=== PATIENT | male | born 1970 | race Caucasian/White ===

== ENCOUNTER 2020-05-07 06:10 | Outpatient (REF) | payer OTHER, SELFPAY ==
[2020-05-07 11:30] LABS: MANUAL DIFF FLAG NO
[2020-05-07 11:39] LABS: Basophils Percent Auto 0.6 % (0-2); Eosinophils Absolute Auto 0.2 X10*3/uL (0.0-0.4); Eosinophils Percent Auto 2.9 % (0-4); Hematocrit 43.7 % (42-52); Hemoglobin 14.5 g/dl (14.0-18.0); Imm Gran Abs Auto 0.02 X10*3/uL (0.00-0.03); Imm Gran Pct Auto 0.4 % (0.0-0.4); Lymphocytes Absolute Auto 1.8 X10*3/uL (1.2-4.9); Lymphocytes Percent Auto 35.1 % (20-40); Mean Corpuscular HGB Conc 33.2 g/dl (31.0-36.0); Mean Corpuscular Hemoglobin 28.4 pg (27.0-33.0); Mean Corpuscular Volume 85.7 fL (80-98); Mean Platelet Volume 10.1 fL (9.4-12.4); Monocytes Absolute Auto 0.4 X10*3/uL (0.1-1.2); Monocytes Percent Auto 8.4 % (2-11); Neutrophils Absolute Auto 2.8 X10*3/uL (2.0-8.3); Neutrophils Percent Auto 52.6 % (45-73); Platelet Count 221 X10*3/uL (160-400); Red Cell Distribution Width 11.9 % (11.0-16.0); White Blood Count 5.2 X10*3/uL (4.8-10.8)
[2020-05-07 12:04] LABS: Alanine Aminotransferase 32 U/L (0-40); Albumin Level 4.3 g/dL (3.5-5.0); Alkaline Phosphatase 50 U/L (39-117); Anion Gap 14 (12-20); Aspartate Amino Transferase 24 U/L (5-37); Bilirubin Total 0.8 mg/dL (0.0-1.0); Blood Urea Nitrogen 22 mg/dL (9-16); Carbon Dioxide 28 mmol/L (22-29); Chloride 104 mmol/L (96-108); Cholesterol 205 mg/dL; Estimated Glomerular Filt Rate > 60; Glucose Fasting 84 mg/dL (60-99); HDL Cholesterol 40 mg/dL; LDL Cholesterol Calculated 119 mg/dl; Potassium 4.1 mmol/l (3.3-5.1); Sodium 142 mmol/L (135-145); Total Protein 6.9 g/dL (6.5-8.0); Triglycerides 230 mg/dL
[2020-05-07 12:13] LABS: Free T4 (Free Thyroxine) 1.15 ng/dL (0.71-1.85); Thyroid Stimulating Hormone 0.58 mIU/mL (0.32-4.0)
== END 2020-05-07 06:11 | disposition home or self-care (01) ==
LOC: HO.HMGCLDS 06:10
PROVIDERS: PCP Internal Medicine; Visit Provider Internal Medicine
DX: E78.00 Pure hypercholesterolemia, unspecified (principal); E03.9 Hypothyroidism, unspecified
CPT/HCPCS: 36415; 80053; 80061; 84439; 84443; 85025

== ENCOUNTER 2020-05-19 12:17 | Outpatient (REF) | payer OTHER, SELFPAY ==
--- NOTE | 2020-05-19 | US_ITS ---
EXAMINATION: US ABDOMEN COMPLETE CLINICAL INFORMATION: Abdominal pain. COMPARISON: Renal ultrasound dated 10/21/2012. TECHNIQUE: Real-time imaging of the abdominal viscera. FINDINGS: PANCREAS: Normal. ABDOMINAL AORTA: The proximal, mid, and distal segments are normal in caliber. INFERIOR VENA CAVA: Visualized portions are normal. LIVER: Normal. The liver is normal in size. The liver contour is normal. Parenchymal echogenicity is normal. No focal hepatic lesion. There is no intrahepatic biliary duct dilatation seen. GALLBLADDER: Normal. The gallbladder is physiologically distended without evidence of stones, sludge, polyps, wall thickening or pericholecystic fluid. COMMON BILE DUCT: Normal in caliber measuring 0.2 cm in diameter. RIGHT KIDNEY: Normal. No hydronephrosis. No renal calculi or focal parenchymal lesions. The kidney measures 12.5 cm in maximum dimension. LEFT KIDNEY: At the lower pole, a 1.5 cm maximal diameter simple cyst is seen.. No hydronephrosis. No renal calculi or focal parenchymal lesions. The kidney measures 12.0 cm in maximum dimension. SPLEEN: Normal. The spleen measures 11.1 cm in maximum dimension. FREE FLUID: None. US/US abdomen complete IMPRESSION: A small simple left renal lower pole cyst is seen. The examination is otherwise unremarkable.
== END 2020-05-19 12:18 | disposition home or self-care (01) ==
LOC: HO.US 12:17
PROVIDERS: PCP Internal Medicine; Visit Provider Internal Medicine
DX: R10.0 Acute abdomen (principal)
CPT/HCPCS: 76700

== ENCOUNTER 2020-07-17 07:22 | Outpatient (REF) | payer OTHER, SELFPAY | END 2020-07-17 07:23 | disposition home or self-care (01) | LOC: HO.LAB 07:22 | PROVIDERS: Visit Provider Internal Medicine | DX: Z20.828 Contact with and (suspected) exposure to other viral communicable diseases (principal) | CPT/HCPCS: C9803; U0003 ==

== ENCOUNTER 2020-07-30 11:20 | Day surgery (SDC) | payer OTHER, SELFPAY ==
[2020-07-26 11:30] VITALS: BMI 31.7
--- NOTE | 2020-07-29 08:56 | P.CONAN_ITS ---
Documented by User: Shanae Young 07/29/20 08:57 HPI - Anesthesia Eval Consult details Narrative: 50yo M for Colonoscopy [facility] Past Medical History Medical History COVID-19 vaccine administered Elevated cholesterol Lab test negative for COVID-19 virus Thyroid disease Surgical History Surgical History S/P scrotal varicocelectomy Social History Social History Alcohol intake: current Alcohol intake frequency: a few times a month Smoking Status: Never smoker Use of substances other than those prescribed or required for medical reasons: No Advance Directives Information Provided: No Recently lost weight without trying: No Meds Allergies Allergy/AdvReac Type Severity Reaction Status Date / Time No Known Allergies Allergy Verified 07/26/20 11:37 [No Known Allergies*] Home Medications Medication Instructions Recorded Confirmed Type levothyroxine 200 mcg PO DAILY 07/26/20 07/26/20 History multivitamin 1 tab PO DAILY 07/26/20 07/26/20 History rosuvastatin 10 mg PO DAILY 07/26/20 07/26/20 History Exam Exam Date and Time: July 29, 2020 0856 Height,Weight and Vital Signs: Height 5 ft 10 in Weight 100.244 kg Assessment and Plan Assessment Anesthesia Assessment: Chart Reviewed Documented by User: Fe Johnson 07/30/20 12:36 [facility] Past Medical History Medical History COVID-19 vaccine administered Elevated cholesterol Lab test negative for COVID-19 virus Thyroid disease Family History Family history of problems with anesthesia: No Surgical History Surgical History S/P scrotal varicocelectomy History of Problems with Anesthesia: No Social History Social History (Reviewed 07/30/20 @ 12:31 by Fe Peterson Alcohol intake: current Alcohol intake frequency: a few times a month Smoking Status: Never smoker Use of substances other than those prescribed or required for medical reasons: No Advance Directives Information Provided: No Recently lost weight without trying: No Meds Allergies Allergy/AdvReac Type Severity Reaction Status Date / Time No Known Allergies Allergy Verified 07/26/20 11:37 [No Known Allergies*] Home Medications Medication Instructions Recorded Confirmed Type levothyroxine 200 mcg PO DAILY 07/26/20 07/26/20 History multivitamin 1 tab PO DAILY 07/26/20 07/26/20 History rosuvastatin 10 mg PO DAILY 07/26/20 07/26/20 History Exam Height,Weight and Vital Signs: Vital Signs Temp Pulse Resp BP Pulse Ox 07/30/20 12:05 96.9 F 86 16 128/86 97 Airway Mallampati Class: II TM Dist: >3cm Neck ROM: Full Loose/Missing/Broken Teeth: No Heart: RRR Lungs: CTAB Assessment and Plan Assessment Anesthesia Assessment: Anesthesia Plan Discussed and Chart Reviewed Final Anesthetic Review NPO: Yes ASA Class: II Final Preanesthetic Review: No Changes in Pt Med Stat, Meds/Allgs Chart Reviewed, Consent Obtained/Reviewed and Anes Risks/Benef Reviewed Patient Risk: Low Procedure Risk: Low Assessment/Block/Sedation in SS: Assess/Block/Sedation-SS Anesthetic Plan Anesthetic Plan: MAC: Disposition: Standard PACU
[2020-07-30 12:05] VITALS: BP 128/86; PULSE 86; RESP 16; TEMP 36.1; O2SAT 97
[2020-07-30] MEDS: Lactated Ringers 1,000 ML 100 ML IVCONT (12:15)
--- NOTE | 2020-07-30 12:45 | MHC.SHP ---
Pre-Procedural Eval Section A The patient is an INPATIENT: No Changes since office visit: No Cold of Flu in the past 2 weeks, No New Medical Problems, No Changes in Medication and No Patient answered all questions The History & Physical has been completed within 30 days and I have reviewed it.: Yes Section B Chief Complaint: Left LQP Allergies: Allergies Allergy/AdvReac Type Severity Reaction Status Date / Time No Known Allergies Allergy Verified 07/26/20 11:37 [No Known Allergies*] Plan I have reviewed the history and physical and performed a pertinent physical examination on my patient. No changes have occurred unless specified.
[2020-07-30 13:10] VITALS: BP 93/62; PULSE 76; RESP 16; TEMP 36.4; O2SAT 96
--- NOTE | 2020-07-30 13:11 | PM.OP ---
Brief Operative Note Date of Service: 07/30/20 Pre-op diagnosis: llq pain Post-op diagnosis: same (normal) Surgeon: Pancho Cornell Anesthesia: MAC Estimated blood loss (mL): 0 Pathology: none sent Condition: stable Disposition: PACU
[2020-07-30 13:25] VITALS: BP 113/81; PULSE 78; RESP 18; TEMP 36.2; O2SAT 94
--- NOTE | 2020-07-30 13:41 | OP_ITS ---
SURGEON: Pancho Cornell MD INDICATIONS: Left lower quadrant and rectal pain. PREOPERATIVE DIAGNOSIS: POSTOPERATIVE DIAGNOSIS: PROCEDURE PERFORMED: Colonoscopy to the terminal ileum. ESTIMATED BLOOD LOSS: COMPLICATIONS: ANESTHESIA: ASSISTANTS: SPECIMENS: MEDICATIONS: Monitored anesthesia care. DESCRIPTION OF PROCEDURE: The history and physical performed. The risks and benefits of the procedure were explained to the patient. Informed consent was obtained. The patient was placed in left lateral decubitus position. A digital rectal exam was performed and was found to be normal. The Olympus pediatric video colonoscope was introduced into the rectum and advanced to the cecum without difficulty. The cecum was identified by transillumination, palpation, and identification of ileocecal valve. Examination was performed. The scope was removed. He tolerated the procedure well and was returned to recovery area in stable condition. FINDINGS: The terminal ileum was normal. Visualized colonic mucosa was normal. The quality of the prep was good. No polyps were identified. Retroflexed examination showed small internal hemorrhoids. IMPRESSION: Normal colonoscopy. RECOMMENDATION: Follow up as needed. Screening colonoscopy is recommended in 10 years for average risk individuals. MD CHRISTINE Carrillo/COLLIN / [id number] MTDD
--- NOTE | 2020-07-30 13:42 | HO.POSTANES ---
Post Anesthesia Evaluation Post Anesthesia Evaluation Vital Signs: Vital Signs Temp Pulse Resp BP Pulse Ox 07/30/20 13:25 97.2 F 78 18 113/81 94 07/30/20 13:10 97.5 F 76 16 93/62 96 07/30/20 12:05 96.9 F 86 16 128/86 97 Anesthesia: Monitored Mental Status: Awake Pain Control: Satisfactory Nausea/Vomiting: None Hydration: Adequate Anesthesia-Related Issues: No Anes. Related Issues
== END 2020-07-30 13:53 | disposition home or self-care (01) ==
PROVIDERS: PCP Internal Medicine; Visit Provider Internal Medicine Gastroenterology
PROC: 0DJD8ZZ Inspection of Lower Intestinal Tract, Via Natural or Artificial Opening Endoscopic (ICD-10-PCS; CPT 45378; principal; 2020-07-30 12:50)
DX: R10.32 Left lower quadrant pain (principal); K62.89 Other specified diseases of anus and rectum; K64.8 Other hemorrhoids; E03.9 Hypothyroidism, unspecified; E78.5 Hyperlipidemia, unspecified; Z86.79 Personal history of other diseases of the circulatory system; Q61.01 Congenital single renal cyst; Z79.899 Other long term (current) drug therapy
CPT/HCPCS: 45378; J3010

== ENCOUNTER 2022-01-18 06:02 | Outpatient (REF) | payer OTHER, SELFPAY ==
[2022-01-18 11:29] LABS: MANUAL DIFF FLAG NO
[2022-01-18 11:43] LABS: Basophils Percent Auto 0.5 % (0-2); Eosinophils Absolute Auto 0.2 X10*3/uL (0.0-0.4); Eosinophils Percent Auto 3.6 % (0-4); Hematocrit 44.8 % (42.0-52.0); Imm Gran Abs Auto 0.02 X10*3/uL (0.00-0.03); Imm Gran Pct Auto 0.4 % (0.0-0.4); Lymphocytes Percent Auto 36.3 % (20-40); Mean Corpuscular HGB Conc 33.5 g/dl (31.0-36.0); Mean Corpuscular Hemoglobin 28.8 pg (27.0-33.0); Mean Corpuscular Volume 86.2 fL (80.0-98.0); Mean Platelet Volume 10.1 fL (9.4-12.4); Monocytes Absolute Auto 0.4 X10*3/uL (0.1-1.2); Monocytes Percent Auto 7.9 % (2-11); Neutrophils Absolute Auto 2.9 x10*3/uL (2.0-8.3); Neutrophils Percent Auto 51.3 % (45-73); Platelet Count 214 X10*3/uL (160-400); Red Cell Distribution Width 12.1 % (11.0-16.0); White Blood Count 5.6 X10*3/uL (4.8-10.8)
[2022-01-18 12:26] LABS: Free T4 (Free Thyroxine) 1.11 ng/dL (0.71-1.85); Prostate Specific Antigen 0.49 ng/mL (<0.05-4.0); Thyroid Stimulating Hormone 0.89 uIU/mL (0.32-4.0)
[2022-01-18 12:46] LABS: Alanine Aminotransferase 37 U/L (0-40); Albumin Level 4.6 g/dL (3.5-5.0); Alkaline Phosphatase 53 U/L (39-117); Anion Gap 13 (12-20); Aspartate Amino Transferase 30 U/L (5-37); Bilirubin Total 0.7 mg/dL (0.0-1.0); Blood Urea Nitrogen 26 mg/dL (9-16); Calcium 9.1 mg/dL (8.4-10.2); Carbon Dioxide 27 mmol/L (22-29); Chloride 104 mmol/L (96-108); Cholesterol 213 mg/dL; Estimated Glomerular Filt Rate > 60; Glucose Fasting 89 mg/dL (60-99); HDL Cholesterol 47 mg/dL; LDL Cholesterol Calculated 118 mg/dl; Potassium 4.1 mmol/L (3.3-5.1); Sodium 140 mmol/L (135-145); Total Protein 7.2 g/dL (6.5-8.0); Triglycerides 244 mg/dL
== END 2022-01-18 06:03 | disposition home or self-care (01) ==
LOC: HO.HMGCLDS 06:02
PROVIDERS: Visit Provider Internal Medicine
DX: Z00.00 Encounter for general adult medical examination without abnormal findings (principal); E03.9 Hypothyroidism, unspecified; Z13.220 Encounter for screening for lipoid disorders; Z12.5 Encounter for screening for malignant neoplasm of prostate
CPT/HCPCS: 36415; 80053; 80061; 84153; 84439; 84443; 85025

== ENCOUNTER 2024-01-15 06:00 | Outpatient (REF) | payer OTHER, SELFPAY ==
[2024-01-15 11:04] LABS: MANUAL DIFF FLAG NO
[2024-01-15 11:17] LABS: Appearance Urine Clear; Basophils Absolute Auto 0.1 X10*3/uL (0.0-0.2); Basophils Percent Auto 0.9 % (0-2); Color Urine Yellow; Eosinophils Absolute Auto 0.3 X10*3/uL (0.0-0.4); Eosinophils Percent Auto 4.9 % (0-4); Glucose Urine UA Negative (Negative); Hematocrit 43.9 % (42.0-52.0); Hemoglobin 14.8 g/dl (14.0-18.0); Imm Gran Abs Auto 0.02 X10*3/uL (0.00-0.03); Imm Gran Pct Auto 0.4 % (0.0-0.4); Leukocyte Esterase Urine Negative (Negative); Lymphocytes Absolute Auto 2.1 X10*3/uL (1.2-4.9); Mean Corpuscular HGB Conc 33.7 g/dl (31.0-36.0); Mean Corpuscular Volume 85.9 fL (80.0-98.0); Monocytes Absolute Auto 0.5 X10*3/uL (0.1-1.2); Monocytes Percent Auto 7.9 % (2-11); Neutrophils Absolute Auto 2.8 x10*3/uL (2.0-8.3); Neutrophils Percent Auto 48.9 % (45-73); Nitrite Urine Negative (Negative); Platelet Count 221 X10*3/uL (160-400); Red Blood Count 5.11 X10*6/uL (4.60-5.80); Red Cell Distribution Width 12.8 % (11.0-16.0); Urine Blood Negative (Negative); Urine Ketones Negative (Negative); Urine Protein Negative (Neg-Trace); White Blood Count 5.7 X10*3/uL (4.8-10.8)
[2024-01-15 12:02] LABS: Alanine Aminotransferase 37 U/L (0-40); Albumin Level 4.5 g/dL (3.5-5.0); Alkaline Phosphatase 47 U/L (39-117); Anion Gap 13 (12-20); Aspartate Amino Transferase 29 U/L (5-37); Bilirubin Total 0.8 mg/dL (0.0-1.0); Blood Urea Nitrogen 18 mg/dL (9-16); Calcium 10.2 mg/dL (8.4-10.2); Carbon Dioxide 30 mmol/L (22-29); Chloride 102 mmol/L (96-108); Cholesterol 194 mg/dL (<200); Estimated Glomerular Filt Rate > 60; Free T4 (Free Thyroxine) 1.04 ng/dL (0.71-1.85); Glucose Fasting 92 mg/dL (60-99); HDL Cholesterol 51 mg/dL (>40); LDL Cholesterol Calculated 102 mg/dL (<100); Potassium 4.1 mmol/L (3.3-5.1); Sodium 141 mmol/L (135-145); Thyroid Stimulating Hormone 0.29 uIU/mL (0.32-4.0); Total Protein 7.4 g/dL (6.5-8.0); Triglycerides 205 mg/dL (<150)
[2024-01-15 12:03] LABS: Prostate Specific Antigen 0.37 ng/mL (<0.05-4.0)
== END 2024-01-15 06:01 | disposition home or self-care (01) ==
LOC: HO.HMGCLDS 06:00
PROVIDERS: PCP Internal Medicine; Visit Provider Internal Medicine
DX: E78.00 Pure hypercholesterolemia, unspecified (principal); Z12.5 Encounter for screening for malignant neoplasm of prostate; E03.9 Hypothyroidism, unspecified
CPT/HCPCS: 36415; 80053; 80061; 81003; 84153; 84439; 84443; 85025

== ENCOUNTER → 2024-02-27 09:49 | Outpatient (REF) | payer OTHER, SELFPAY ==
--- NOTE | 2024-02-27 09:53 | CA_ITS ---
Transthoracic Echocardiogram Patient (Last, First, Middle): Mukund Saenz T Gender: Male Date of : 1970 Age: 54 Procedure Date: 02/27/2024 Procedure Type: Transthoracic Echocardiogram Location: OP Height: 180.34 cm Weight: 97.52 kg BSA: 2.17 m2 Heart Rate: bpm BP: 124 / 76 mmHg [employer] Miner: PETEY Referring MD: Alon Stapleton MD Symptoms: I45.10 RBBB Z82.49 FAM HX HD Study Quality: Adequate ECG Rhythm: Sinus Conclusions: - The left ventricular systolic function is normal. The calculated ejection fraction is 58% by biplane method. - No obvious valvular pathology seen on this study. - There is mild dilatation of the sinuses of Valsalva measuring 4.37 cm and mild dilatation of the ascending aorta measuring 4.00 cm. Findings Left Ventricle Normal left ventricular cavity size. There is mildly increased left ventricular wall thickness. The left ventricular systolic function is normal. The calculated ejection fraction is 58% by biplane method. There is no evidence of regional wall motion abnormalities. Diastolic function is normal for age. Right Ventricle Mildly increased right ventricular cavity size. There is normal right ventricular systolic function. Atria Both atria are normal in size. Aortic Valve There is a normal trileaflet aortic valve. There is no aortic valve stenosis. There is no aortic valve regurgitation. Mitral Valve The mitral valve appears normal. There is trace mitral valve regurgitation. There is no mitral valve stenosis. Pulmonic Valve The pulmonic valve is likely normal. Tricuspid Valve Normal tricuspid valve structure. There is trace tricuspid valve regurgitation. There is no evidence of pulmonary hypertension. Great Vessels There is mild dilatation of the sinuses of Valsalva measuring 4.37 cm and mild dilatation of the ascending aorta measuring 4.00 cm. Venous The inferior vena cava is normal in size and collapses greater than 50% with inspiration. Pericardium/Pleural There is no evidence of pericardial effusion. Prior Study Comparison No prior study available for comparison. Recommendations, Care & Conclusions No obvious valvular pathology seen on this study. Measurements 2D Linear Measurements IVSd: 1.05 0.6-0.9/0.6-1.0 cm LVIDd: 5.19 3.9-5.3/4.2-5.9 cm LVIDd Index: 2.39 2.4-3.2/2.2-3.1 cm/m2 LVIDs: 3.32 2.0-3.6 cm LVPWd: 1.04 0.7-1.1 cm LA Diam: 2.90 2.7-3.8/3.0-4.0 cm LAIDs Index: 1.34 1.5-2.3 cm/m2 LV Mass: 255.87 67-162/88-224 g LV Mass Index: 117.91 43-95/49-115 g/m2 LVOT Diam: 2.30 3.0+(-)1.3 cm 2D Systolic Function EF 4C: 59.50 >55% EF 2C: 54.50 >55% EF BiP: 57.90 >55% Mitral Valve MV Pk E: 0.49 MV PK A: 0.58 MV Decel Time: 261.00 E/A: 0.80 E'Lateral: 9.36 E'Medial: 6.20 E/E' Med: 8.00 E/E' Lat: 5.30 PHT: 76.00 MVA PHT: 2.89 Decel [place]: 1.89 Aortic Valve AoV Pk Jaun: 1.09 AoV Mn Jaun: 0.74 AoV VTI: 0.19 AoV Pk Grad: 5.00 Aov Mn Grad: 3.00 DANIELLE Cont.VTI: 3.97 LVOT LVOT Pk Jaun: 0.90 LVOT Mn Jaun: 0.55 LVOT VTI: 0.18 LVOT Pk Grad: 3.00 LVOT Mn Grad: 1.00 LVOT Diam: 2.30 LVOT Area: 4.15 Diastolic Function MV Pk E: 0.49 MV Pk A: 0.58 E/A: 0.80 E'Medial: 6.20 E/E' Med: 8.00 E' Laterial: 9.36 E/E' Lat: 5.30 Right Ventricle TAPSE (mm): 10.70 TVS' Jaun: 14.00 Tricuspid Valve TR Pk Jaun: 1.72 TR Pk Grad: 12.00 RA Press: 3.00 RVSP: 15.00 Great Vessels Aorta Sinus of Valsalva: 4.37 2.0-3.[address] [place]: 3.66 1.7-3.4 cm Ao Asc: 4.00 2.1-3.4 cm Updated in Other Vendor System with Status of Final Winston Qureshi MD electronically signed on 02/29/2024 10:10:38 AM with status of Final
== END ==
LOC: HO.CARD 09:49
PROVIDERS: PCP Internal Medicine; Visit Provider Internal Medicine
DX: I45.10 Unspecified right bundle-branch block (principal); Z82.49 Family history of ischemic heart disease and other diseases of the circulatory system
CPT/HCPCS: 93306

== ENCOUNTER → 2024-02-27 09:53 | Outpatient (BNV) | payer OTHER, SELFPAY | PROVIDERS: PCP Internal Medicine; Visit Provider Internal Medicine | DX: I45.5 Other specified heart block (principal) | CPT/HCPCS: 93306 ==

== ENCOUNTER 2025-01-30 09:51 | Outpatient (REF) | payer OTHER, SELFPAY ==
[2025-01-30 10:51] LABS: MANUAL DIFF FLAG NO
[2025-01-30 11:13] LABS: Hematocrit 44.5 % (42.0-52.0); Hemoglobin 15.2 g/dl (14.0-18.0); Imm Gran Abs Auto 0.02 X10*3/uL (0.00-0.03); Imm Gran Pct Auto 0.4 % (0.0-0.4); Lymphocytes Absolute Auto 2.1 X10*3/uL (1.2-4.9); Mean Corpuscular HGB Conc 34.2 g/dl (31.0-36.0); Mean Corpuscular Hemoglobin 28.7 pg (27.0-33.0); Mean Corpuscular Volume 84.1 fL (80.0-98.0); NRBC Abs Auto 0.000 X10*3/uL (0.0-0.012); NRBC Pct Auto 0.0 /100WBC (0.0-0.2); Platelet Count 192 X10*3/uL (160-400); Red Blood Count 5.29 X10*6/uL (4.60-5.80); White Blood Count 5.3 X10*3/uL (4.8-10.8)
[2025-01-30 11:15] LABS: Hemoglobin A1C 135.7183 umol/L; Total Hemoglobin (HGBA1C) 3873.6138 umol/L
[2025-01-30 12:29] LABS: Alanine Aminotransferase 46 U/L (0-40); Albumin Level 5.0 g/dL (3.5-5.0); Alkaline Phosphatase 56 U/L (39-117); Anion Gap 11 (12-20); Aspartate Amino Transferase 32 U/L (5-37); Blood Urea Nitrogen 22 mg/dL (9-16); Calcium 9.6 mg/dL (8.4-10.2); Carbon Dioxide 30 mmol/L (22-29); Chloride 105 mmol/L (96-108); Estimated Glomerular Filt Rate > 60; Potassium 4.2 mmol/L (3.3-5.1); Sodium 142 mmol/L (135-145); Total Protein 7.5 g/dL (6.5-8.0)
[2025-01-30 12:37] LABS: Folate 13.1 ng/mL (> or = 4.0); Prostate Specific Antigen 0.28 ng/mL (<0.05-4.0); Vitamin B12 562 pg/mL (200-900)
[2025-01-30 13:16] LABS: Free T4 (Free Thyroxine) 1.10 ng/dL (0.71-1.85)
[2025-02-03 02:03] LABS: Lyme Abs Screen <0.90 index
== END 2025-01-30 09:52 | disposition home or self-care (01) ==
LOC: HO.LAB 09:51
PROVIDERS: PCP Internal Medicine; Visit Provider Internal Medicine
DX: Z00.00 Encounter for general adult medical examination without abnormal findings (principal); E78.00 Pure hypercholesterolemia, unspecified; E03.9 Hypothyroidism, unspecified; R53.83 Other fatigue; Z79.899 Other long term (current) drug therapy; Z12.5 Encounter for screening for malignant neoplasm of prostate; Z13.228 Encounter for screening for other metabolic disorders; Z13.30 Encounter for screening examination for mental health and behavioral disorders, unspecified; Z13.39 Encounter for screening examination for other mental health and behavioral disorders
CPT/HCPCS: 36415; 80053; 82607; 82746; 83036; 83721; 84153; 84439; 84443; 85025; 86617; 86618; 96127

== ENCOUNTER 2025-01-30 09:51 | Outpatient (AMB) | payer OTHER, SELFPAY ==
--- NOTE | 2025-01-30 09:57 | MHC.PC.OV ---
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 Last TSH suppressed-unclear if dose changed HLD-on crestor. Last LDL at goal Toe nail fungus. Last round of pulse diflucan was not effective Colonoscopy 07/30/20 ROS CONSTITUTIONAL: Denies weight loss, fever and chills. HEENT: Denies changes in vision and hearing. RESPIRATORY: Denies SOB and cough. CV: Denies palpitations and CP GI: Denies abdominal pain, nausea, vomiting and diarrhea. : Denies dysuria and urinary frequency. MSK: Denies new myalgia and joint pain. SKIN: Denies rash and pruritus. NEUROLOGICAL: Denies headache PSYCHIATRIC: Denies recent changes in mood. PHYSICAL EXAM: GENERAL: Alert and oriented x 3. NAD EYES: EOMI. Anicteric. HENT: Moist mucous membranes. No scleral icterus. No cervical lymphadenopathy. LUNGS: Clear to auscultation bilaterally. CARDIOVASCULAR: Regular rate and rhythm. No murmur. No JVD. ABDOMEN: Soft, non-tender +bs EXTREMITIES: No edema. Non-tender. SKIN: No rashes or lesions. Warm. NEUROLOGIC: No focal neurological deficits. CN II-XII grossly intact PSYCHIATRIC: Cooperative. Appropriate mood and affect [facility] Medical History COVID-19 vaccine administered Lab test negative for COVID-19 virus Thyroid disease Elevated cholesterol Surgical History History of colonoscopy (~07/30/20) S/P scrotal varicocelectomy Family History Mother No problems noted. Father No problems noted. Social History Housing: House Alcohol intake: current Alcohol intake frequency: a few times a month Patient Tobacco Use Status: Never used Tobacco e-Cigarette/Vaping Use: Never Used service: No Current occupational status: employed Cognitive needs: No Hearing needs: No Vision needs: Yes (reading glasses) Questionnaire PHQ-9 Over the last 2 weeks, how often have you been bothered by any of the following problems? 1. Little interest or pleasure in doing things: not at all 2. Feeling down, depressed, or hopeless: not at all 3. Trouble falling or staying asleep, or sleeping too much: not at all 4. Feeling tired or having little energy: not at all 5. Poor appetite or overeating: not at all 6. Feeling bad about yourself - or that you are a failure or have let yourself or your family down: not at all 7. Trouble concentrating on things, such as reading the newspaper or watching television: not at all 8. Moving or speaking so slowly that other people could have noticed. Or the opposite - being so fidgety or restless that you have been moving around a lot more than usual: not at all 9. Thoughts that you would be better off or of hurting yourself in some way: not at all Total score: 0 Source: Developed by Drs. Catrachito Carrizales, Cindi Hernadez, Naresh Conteh and colleagues, with an educational mala from [employer]. Thrive Questionnaire Date Thrive assessed: 01/30/25 I am a: Patient Within the past 12 months, did the food you bought not last and you didn't have the money to get more?: Never true Within the past 12 months, did you worry whether your food would run out before you got money to buy more?: Never true Do you have trouble paying for medicines?: No Do you have trouble getting transportation to medical appointments?: No Do you have trouble paying your heating and electricity bill?: No Do you have trouble taking care of your child, family member or friend?: No Do you have trouble with day-to-day activities such as bathing, preparing meals, shopping, managing finances, etc.?: No Are you currently unemployed and looking for a job?: No Are you interested in more education?: No THRIVE Score: 0 AUDIT C Alcohol Use Questionnaire (AUDIT-C) 1. How often do you have a drink containing alcohol?: Monthly or less 2. How many drinks containing alcohol do you have on a typical day when you are drinking?: 1 or 2 3. How often do you have six or more drinks on one occasion?: Less than monthly Total Score: 2 RANDY-7 AMB Questionnaire RANDY-7 Date RANDY - 7 assessed: 01/30/25 Feeling nervous, anxious, or on edge: 0 = Not at all Not being able to stop or control worryin = Not at all Worrying too much about different things: 0 = Not at all Trouble relaxin = Not at all Being so restless that it is hard to sit still: 0 = Not at all Becoming easily annoyed or irritable: 0 = Not at all Feeling afraid as if something awful might happen: 0 = Not at all Total RANDY-7 score (0-4 normal; 5-9 mild; 10-14 moderate; 15-21 severe): 0 Source: Developed by Drs. Catrachito Carrizales, Cindi Hernadez, Naresh Conteh and colleagues, with an educational mala from [employer]. Physical exam (Primary Care) Vital Signs: Last Vital Signs Temp 97.1 F 01/30/25 10:04 Pulse 79 01/30/25 10:04 BP 122/80 01/30/25 10:04 Pulse Ox 98 01/30/25 10:04 Oxygen Delivery Method Room Air 01/30/25 10:04 BMI result Body Mass Index 30.0 Tobacco/Smoking Status: Tobacco use Status Tobacco use date assessed 01/30/25 01/30/25 09:58 Patient Tobacco Use Status Never used Tobacco 01/30/25 09:58 e-Cigarette/Vaping Use Never Used 01/30/25 09:58 PHQ-9: PHQ-9 Score PHQ-9: Total score 0 01/30/25 09:58 Thrive Assessment: Date of Thrive Assessment Date Thrive assessed 01/30/25 01/30/25 09:58 Coding Level of Care Code New Pt Prev Care 40-64y(94864) Diagnoses Physical exam Z00.00 Elevated cholesterol E78.00 Thyroid disease E07.9 Assessment & Plan Assessment & Plan (1) Physical exam: Code(s): Z00.00 - Encounter for general adult medical examination without abnormal findings (2) Elevated cholesterol: Code(s): E78.00 - Pure hypercholesterolemia, unspecified Category: Medical (3) Thyroid disease: Comment: hypothyroid Code(s): E07.9 - Disorder of thyroid, unspecified Category: Medical Plan 55 year old for physical exam Past medical, surgical, social reviewed Hypothyroid-check labs Afternoon fatigue-narrow oropharnx. could consider future sleep study toe nail fungus-ternanifine ordered Preventive measures for age discussed Orders: Orders LDL Cholesterol Direct Today E78.00 - Pure hypercholesterolemia, unspecified Vitamin B12 and Folate Today R53.83 - Other fatigue Prostate Specific Antigen Today Z12.5 - Encounter for screening for malignant neoplasm of prostate Lyme IgG/IgM w/reflex to WB Today R53.83 - Other fatigue Medications: New terbinafine HCl 250 mg PO DAILY 84 tabs 0RF 12 weeks Refilled levothyroxine 200 mcg PO DAILY 90 tabs 3RF rosuvastatin 20 mg PO DAILY 90 tabs 3RF
--- OUTSIDE RECORDS SUMMARY | 2025-01-30 10:03 | XMS_ITS | Clinical Summary ---
Author Organization [facility] Address [address] [place] [address] Phone Care Team Providers Care Guest Service Aide Name Role Phone Alon Stapleton MD Primary Care Provider Allergies No known active allergies Active Problems Problem Noted Date Diagnosed Date Infertility management 09/11/2014 Overview (06/22/2015): Infertility History of varicocele 09/11/2014 Overview (06/22/2015): H/O Varicocele Hypothyroidism 09/11/2014 Overview (06/22/2015): Hypothyroidism Hyperlipidemia 09/11/2014 Overview (06/22/2015): Hyperlipidemia Social History Tobacco Use Types Packs/Day Years Used Date Smoking Tobacco: Never Education Answer Date Recorded Are you interested in more education? Not on bess e 11/10/2022 Are you concerned about learning? Not on file 11/10/2022 No 11/10/2022 No 11/10/2022 Digital Access Answer Date Recorded No 12/11/2022 No 12/11/2022 Reliable internet access at home? Not on file 12/11/2022 Device with a working camera? Not on file Sex and Gender Information Value Date Recorded Sex Assigned at Not on file Legal Sex Male 3:58 PM EST Gender Identity Not on file Sexual Orientation Not on file Last Filed Vital Signs Vital Sign Reading Time Taken Comments Blood Pressure 170/80 09/14/2014 1:07 PM EST Pulse - - Temperature - - Respiratory Rate - - Oxygen Saturation - - Inhaled Oxygen Concentration - - Weight 95.3 kg (210 lb) 09/14/2014 1:07 PM EST Height 177.8 cm (5' 10 ) 09/14/2014 1:07 PM EST Body Mass Index 30.13 09/14/2014 1:07 PM EST Plan of Treatment Health Maintenance Due Date Last Done Comments Adult Td,Tdap Booster 1970 LIPID PANEL 1970 DEPRESSION SCREENING 1984 SMOKING STATUS SCREENING (On ce After 26 Yrs) 01/23/1998 COLOGUARD 01/23/2017 COLONOSCOPY 01/23/2017 COLORECTAL CANCER SCREENING 01/23/2017 FIT TEST 01/23/2017 FOBT 01/23/2017 SIGMOIDOSCOPY 01/23/2017 VIRTUAL COLONOSCOPY 01/23/2017 PNEUMOCOCCAL VACCINES (50+ y ears) (1 of 1 - PCV) 01/23/2022 ZOSTER VACCINES (1 of 2) 01/23/2022 COVID-19 VACCINE (1 - 2023-2 5 season) 2024 HEPATITIS C SCREENING Completed 03/23/2015 HIV ONE-TIME SCREENING (18-6 5 YEARS) Completed 03/23/2015 HEPATITIS A VACCINES Aged Out No long er eligible based on patient's age to complete this topic HIB VACCINES Aged Out No longer eligi ble based on patient's age to complete this topic MENINGOCOCCAL VACCINES (ACWY) Aged Out No longer eligible based on patient's age to complete this topic MENINGOCOCCAL VACCINES (B) Aged Out N o longer eligible based on patient's age to complete this topic Medical Devices Not on file Procedures Procedure Name Priority Date/Time Associated Diagnosis Comments HEPATITIS C ANTIBODY, QUALITATIVE Routine 03/23/2015 1:30 PM EDT from Last 3 Months or Most Recently Relevant to Health Maintenance Results * HCV antibody, qualitative (03/23/2015 1:30 PM EDT) HCV Antibody Negative [facility] Comment: Antibodies to HCV not detected. Does not exclude the possibility of exposure to HCV. 03/23/2015 1:30 PM EDT 03/23/2015 3:31 PM EDT Comment:BLOOD Bony Parikh MD LAB BLOOD ORDERABLES Final Result [address] [id number] from Last 3 Months or Most Recently Relevant to Health Maintenance [place] [place] [id number] CHOICE [facility] CHOICE [facility] [place] [address] [place] [address] [place] [address] [place] [address] [place] [place] [address] [place] [place] [address] [place] [address] [place] [address] CHOICE Care Teams Guest Service Aide Relationship Specialty Start Date End Date Alon Stapleton MD [address] [place] [address] [place] [address] PCP - General Internal Medicine 07/06/14 Additional Source Comments The information contained in this document represents components of the legal health record. It is not the complete legal health record.[facility]
--- OUTSIDE RECORDS SUMMARY | 2025-01-30 10:03 | XMS_ITS | Patient Health Record ---
Author Organization [facility] Address [address] [place] [address] Care Team Providers Care Interventional Radiology Rn Name Role Phone Daya (RETIRED) Alon LOPEZ Primary Care Provide r Pancho Davalos Jr Unavailable [phone] Reason For Referral No Information Medications Medication SIG (Take, Route, Frequency, Duration) Notes Start Date End Date Status Rosuvastatin Calcium Active Levothyroxine Sodium Active MiraLax (colon prep) 8.3 ounce ((238) grams mixed with Gatorade or Crystal Light orally begin at 5:00 p.m. the day before the procedure for 1 day 07/21/2020 Active Ibuprofen PRN Active Advil PRN Active Multivitamin Active Immunizations Vaccine Route Administration Date Status Comme nts Influenza Unknown 04/28/2020 Administered Social History Tobacco Use: Social History Observation Description Date Details (start date - stop date) Never Smoker NA - NA Tobacco Use/Smoking Question Answer Notes Patient is a nonsmoker Alcohol Screen Question Answer Notes Did you have a drink contain ing alcohol in the past year? Yes How often did you have a dri nk containing alcohol in the past year? 2 to 3 times a week (3 points) How often did you have 6 or more drinks on one occasion in the past year? Never (0 point) Points 3 Interpretation Negative Problems Problem Type SNOMED Code ICD Code Onset Dates Problem Status W/U Status Risk Notes Problem 10288801 Rectal pain (K62.89) Active confirmed Problem 606283670 LLQ pain (R10.32) Active confirmed Plan Of Treatment Future Test Test Name Order Date COLONOSCOPY 07/21/2020 Insurance Providers Payer Name Payer Address Payer Phone Subscriber Number Group Number Insured Name Patient Relationship to Insured Coverage Start Date Coverage End Date [facility] [address] [place] [address] [id number] MITALI DUBON Self - patient is the insured Medical (General) History Medical History History ICD Code hyperlipidemia Hypothyroidism seasonal allergies Surgical History Surgery Date(Month/Year) Varicoceles 2013
[2025-01-30 10:04] VITALS: BP 122/80; PULSE 79; TEMP 36.2; O2SAT 98
== END 2025-01-30 10:32 | disposition home or self-care (01) ==
LOC: HO.HMCHD 09:52
PROVIDERS: PCP Internal Medicine; Visit Provider Internal Medicine
DX: Z00.00 Encounter for general adult medical examination without abnormal findings (principal); E78.00 Pure hypercholesterolemia, unspecified; E07.9 Disorder of thyroid, unspecified